=== PATIENT | male | born 1950 | race American Indian/Alaskan Native ===

== ENCOUNTER 2019-04-27 02:31 | Emergency (ER) | payer MEDICARE ==
[2019-04-27] MEDS ORDERED: ACETAMINOPHEN 325 MG TAB PO ONE (03:02)
--- NOTE | 2019-04-27 03:05 | Emergency Department Report ---
ED Headache HPI - General Chief Complaint: Headache Stated Complaint: HIGH BP Time Seen by Provider: 04/27/19 02:55 Source: patient - History of Present Illness Initial Comments: 68-year-old male with history of hypertension, currently on lisinopril, presents to ED with elevated blood pressure. She reports headache times one day. States he called EMS, they took his blood pressure and it was 180s/100s. Patient denies any nausea, vomiting, chest pain, shortness of breath, weakness or tingling. Patient states he did not take anything for his headache prior to calling EMS. Patient does report increased stress over the past day. He states he lives with a woman who is disabled, and he has to help her out a lot. Patient states yesterday was more stressful than usual. Patient states he was well until 1 month ago and does not have a PCP in the area. Timing/Duration: 24 hours Quality: moderate Associated Symptoms: denies: fever/chills, nausea/vomiting, vision changes, weakness Allergies/Adverse Reactions: Allergies No Known Allergies Allergy (Unverified 04/27/19 03:10) Home Medications: Ambulatory Orders Butalb/Acetamin/Caff 50-325-40 [Fioricet] 1 tab PO Q6HR PRN #10 tab 04/27/19 ED Review of Systems ROS: Stated complaint: HIGH BP Other details as noted in HPI Comment: All other systems reviewed and negative Constitutional: denies: chills, fever ENT: denies: congestion Respiratory: denies: shortness of breath Cardiovascular: denies: chest pain Gastrointestinal: denies: nausea, vomiting Neurological: denies: weakness, numbness ED Past Medical Hx - Past Medical History Previous Medical History?: Yes Hx Hypertension: Yes - Surgical History Past Surgical History?: No - Social History Smoking Status: Current Every Day Smoker Substance Use Type: Alcohol - Medications Home Medications: Home Medications Medication Instructions Recorded Confirmed Last Taken Type Butalb/Acetamin/Caff 50-325-40 1 tab PO Q6HR PRN #10 tab 04/27/19 Unknown Rx [Fioricet] ED Physical Exam - General Limitations: No Limitations General appearance: alert, in no apparent distress - Head Head exam: Present: atraumatic, normocephalic - Eye Eye exam: Present: normal appearance, EOMI - ENT ENT exam: Present: mucous membranes moist - Neck Neck exam: Present: normal inspection - Respiratory Respiratory exam: Present: normal lung sounds bilaterally. Absent: respiratory distress - Cardiovascular Cardiovascular Exam: Present: regular rate, normal rhythm - GI/Abdominal GI/Abdominal exam: Present: soft. Absent: distended, tenderness - Extremities Exam Extremities exam: Present: normal inspection - Neurological Exam Neurological exam: Present: alert, oriented X3, CN II-XII intact. Absent: motor sensory deficit - Psychiatric Psychiatric exam: Present: normal affect, normal mood - Skin Skin exam: Present: warm, dry, intact, normal color ED Course Vital Signs 04/27/19 04/27/19 04/27/19 02:55 03:00 03:16 Temperature 97.6 F Pulse Rate 66 59 L 56 L Respiratory 17 17 24 Rate Blood Pressure 167/92 167/92 163/99 Blood Pressure 167/92 [Right] O2 Sat by Pulse 99 99 99 Oximetry 04/27/19 04/27/19 03:20 04:02 Temperature Pulse Rate 85 Respiratory 18 15 Rate Blood Pressure 163/99 Blood Pressure [Right] O2 Sat by Pulse 97 Oximetry ED Medical Decision Making - Radiology Data Radiology results: report reviewed, image reviewed - Medical Decision Making - JUAN x 1 day - BP 180s/100s w/ EMS - improved here in ED, 160s/90s, w/o intervention - CT Head negative, no acute intracranial abnormality - tylenol given, pt reports some improvement in pain - no neuro deficits on exam, will d/c home, outpt f/u advised - Differential Diagnosis tension JUAN, HTN headache, intracranial bleed Critical care attestation.: If time is entered above; I have spent that time in minutes in the direct care of this critically ill patient, excluding procedure time. ED Disposition Clinical Impression: Acute headache, Hypertension Disposition: TO HOME OR SELFCARE Is pt being admited?: No Condition: Stable Instructions: Hypertension (ED) Prescriptions: Butalb/Acetamin/Caff 50-325-40 [Fioricet] 1 tab PO Q6HR PRN #10 tab PRN Reason: Headache Referrals: [facility] [Provider Group] - 3-5 Days MIKI DOTY MD [Staff Physician] - 3-5 Days TERESA BENÍTEZ MD [Staff Physician] - 3-5 Days Time of Disposition: 04:16
--- NOTE | 2019-04-27 03:42 | Cat Scan Report ---
CT HEAD WITHOUT CONTRAST INDICATION : Pt complains of a "Frontal" headache x 1 day. No Trauma.. TECHNIQUE: Axial, coronal and sagittal CT imaging was performed from the skull apex through the skul l base without contrast. All CT scans at this location are performed using CT dose reduction for ALA RA by means of automated exposure control. COMPARISON: None available. FINDINGS: PARENCHYMA: No mass, midline shift, hemorrhage, extraaxial collection or acute territorial infarctio n. VENTRICLES: Symmetric and normal in size. SOFT TISSUES: Soft tissues including the orbits appear normal. BONES: No acute osseous abnormality. SINUSES: No significant abnormality. ADDITIONAL FINDINGS: None. IMPRESSION: No acute intracranial abnormality. Signer Name: Jarocho Canela MD Signed: 04/27/2019 3:38 AM Workstation Name: [id number]
[2019-04-27 04:15] VITALS: BP 163/99
== END 2019-04-27 04:35 | disposition home or self-care (01) ==
LOC: ED 02:31
DX: R51 Headache (principal); I10 Essential (primary) hypertension; F17.200 Nicotine dependence, unspecified, uncomplicated; Z79.899 Other long term (current) drug therapy
CPT/HCPCS: 70450